=== PATIENT | male | born 1955 | race Two or more races ===

== ENCOUNTER 2019-01-05 06:56 | Emergency (ER) | payer SELFPAY ==
[~2019-01-05] VITALS: Ht 170.2 cm; Wt 74.0 kg
[2019-01-05] MEDS ORDERED: KETOROLAC 30MG/ML VIAL IM ONE (07:30)
[2019-01-05] MEDS ORDERED: ACETAMINOPHEN WITH CODEINE 300/30MG TABLET PO ONE (07:45)
[2019-01-05] MEDS ORDERED: IBUPROFEN 800MG TABLET PO ONE (08:30)
[2019-01-05 10:02] VITALS: BP 133/80
== END 2019-01-05 10:04 | disposition home or self-care (01) ==
LOC: ER 06:56
DX: R51 Headache (principal)
CPT/HCPCS: 99283; J1885

== ENCOUNTER 2019-08-19 15:07 | Emergency (ER) | payer SELFPAY ==
[~2019-08-19] VITALS: Ht 172.7 cm; Wt 72.0 kg
[2019-08-19] MEDS ORDERED: KETOROLAC 30MG/ML VIAL IV STA (15:49)
[2019-08-19 15:51] VITALS: BP 136/69
[2019-08-19 16:15] LABS: CHLORIDE 112 mEq/L (98-107)
[2019-08-19 16:16] LABS: BASOPHILS % 1.2 % (0.0-2.0); EOSINOPHILS % 1.7 % (0.0-5.0); HEMATOCRIT. 42.1 % (42.0-52.0); HEMOGLOBIN. 13.9 g/dL (14.0-18.0); LYMPHOCYTES % 14.3 % (20.0-50.0); MEAN CORPUSCULAR HEMOGLOBIN 29.8 pg (28.0-32.0); MEAN CORPUSCULAR VOLUME 90.4 fL (80.0-94.0); MEAN PLATELET VOLUME 8.2 fl (7.4-10.4); MONOCYTES % 12.5 % (2.0-8.0); NEUTROPHILS % 70.3 % (40.0-76.0); PLATELET 340 x1000/uL (130-400); RED BLOOD CELL COUNT 4.65 mill/uL (4.7-6.1); RED CELL DISTRIBUTION WIDTH 16.6 % (11.6-14.6)
[2019-08-19 16:17] LABS: PROTHROMBIN TIME 10.2 sec (9.6-11.0)
[2019-08-19 16:49] LABS: CLARITY URINE CLEAR (CLEAR); COLOR URINE YELLOW (YELLOW); KETONES URINE NEGATIVE (NEGATIVE); LEUKOCYTE ESTERASE URINE NEGATIVE (NEGATIVE); NITRITE URINE NEGATIVE (NEGATIVE); OCCULT BLOOD URINE 2+ (NEGATIVE); PROTEIN URINE NEGATIVE (NEGATIVE); SPECIFIC GRAVITY URINE 1.032 (1.005-1.030); UROBILINOGEN URINE 0.2 E.U./dL (0.2-1.0)
== END 2019-08-19 19:21 | disposition home or self-care (01) ==
LOC: ER 15:07
DX: R10.32 Left lower quadrant pain (principal); G43.909 Migraine, unspecified, not intractable, without status migrainosus; R11.0 Nausea; Z87.442 Personal history of urinary calculi
CPT/HCPCS: 36415; 81003; 99283